=== PATIENT | male | born 1970 | race Caucasian/White ===

== ENCOUNTER 2017-12-25 06:31 | Emergency (ER) | payer SELFPAY ==
[~2017-12-25] VITALS: Ht 172.7 cm; Wt 122.5 kg
[~2017-12-25 06:31] MED LIST: IPRA0.03; ZITH250T PO
[2017-12-25 06:32] VITALS: BP 163/93; PULSE 54; RESP 17; TEMP 97.6; O2SAT 97
--- NOTE | 2017-12-25 07:12 | PD ---
HPI Chief Complaint: Oral / Dental Pain or Problem Time Seen by Provider: 07:11 Travel History International Travel<30 days: No Contact w/Intl Traveler<30days: No Traveled to known affect area: No History of Present Illness HPI 47-year-old male presents emergency department with dental pain and swelling over the left upper jaw, for the last 3 days. Patient denies sensitivity to hot and cold. He does have pain in the left upper jaw but no sore throat or difficulty swallowing. He denies fever, but has had chills. Patient states long history of bad teeth, and he is attempting to get into a dentist to have his teeth removed. Patient has been taking ibuprofen without much relief. His pain currently is 8 out of 10. He denies any other symptoms. He has no known drug allergies PFSH Past Medical History Medical History: Denies Significant Hx Arthritis: No Asthma: No Autoimmune Disease: No Blood Disorders: No Anxiety: No Depression: Yes Heart Rhythm Problems: No Cancer: No Cardiovascular Problems: Yes High Cholesterol: No Chemotherapy: No Congestive Heart Failure: No COPD: No Cerebrovascular Accident: No Diabetes: No Diminished Hearing: No Endocrine: No GERD: No Glaucoma: No Genitourinary: No Headaches: No Hepatitis: No Hiatal Hernia: No Hypertension: No Kidney Stones: No Musculoskeletal: No Neurologic: No Psychiatric: No Reproductive: No Respiratory: No Myocardial Infarction: No Radiation Therapy: No Renal Failure: No Seizures: No Sickle Cell Disease: No Sleep Apnea: No Thyroid Disease: No Ulcer: No Tetanus Vaccination: > 5 Years Past Surgical History Surgical History: No Previous Surgery Abdominal Surgery: No AICD: No Cardiac Surgery: No Ear Surgery: No Endocrine Surgery: No Eye Surgery: No Genitourinary Surgery: No Gynecologic Surgery: No Oral Surgery: No Pacemaker: No Thoracic Surgery: No Social History Alcohol Use: Yes (OCCASIONALLY) Tobacco Use: No Substance Use: Yes (MARIJUANA) Allergies-Medications (Allergen,Severity, Reaction): Coded Allergies: No Known Allergies (Verified , 05/01/16) Reported Meds & Prescriptions Reported Meds & Active Scripts Active Ibuprofen 800 Mg Tab 800 Mg PO Q8H PRN Penicillin V Potassium 500 Mg Tab 500 Mg PO Q6H 10 Days Zithromax Z-Cec[place] (Azithromycin) 250 Mg Tab 250 Mg PO DIRECTED 5 Days 500 MG (2 TABLETS) PO ON DAY 1, THEN 250 MG (1 TABLET) PO ON DAYS 2 TO 5. Ipratropium [place] 0.03 % Spr 2 [place] NA TID PRN Review of Systems Except as stated in HPI: all other systems reviewed are Neg General / Constitutional: Positive: Chills, No: Fever Eyes: No: Visual changes HENT: Positive: Dental Difficulties, No: Headaches, Vertigo, Lightheadedness, Sore Throat, Rhinitis, Rhinorrhea, Congestion, Nosebleed, Neck Stiffness, Neck Pain, Masses, Gingival Bleeding, Ear Discharge, Earache, Other Cardiovascular: No: Chest Pain or Discomfort Respiratory: No: Shortness of Breath Gastrointestinal: No: Abdominal Pain Genitourinary: No: Dysuria Musculoskeletal: No: Pain Skin: No Rash Neurologic: No: Weakness Psychiatric: No: Depression Endocrine: No: Polydipsia Hematologic/Lymphatic: No: Easy Bruising Physical Exam Narrative GENERAL: Patient appears in mild to moderate distress per SKIN: Warm and dry. Normal color. Normal turgor HEAD: Atraumatic. Normocephalic. Patient has tenderness over the left anterior upper jaw into the left maxillary region. EYES: Pupils equal and round. No scleral icterus. No injection or drainage. ENT: No nasal bleeding or discharge. Mucous membranes pink and moist. Pharynx is clear. Airways patent. Teeth are in very poor repair. Swelling is noted over the #11 and #12 tooth. NECK: Trachea midline. Supple without significant lymphadenopathy. CARDIOVASCULAR: Regular rate and rhythm. RESPIRATORY: No accessory muscle use. Clear to auscultation. Breath sounds equal bilaterally. GASTROINTESTINAL: Abdomen soft, non-tender, nondistended. Hepatic and splenic margins not palpable. MUSCULOSKELETAL: Extremities without clubbing, cyanosis, or edema. No obvious deformities. NEUROLOGICAL: Awake and alert. No obvious cranial nerve deficits. Motor grossly within normal limits. Five out of 5 muscle strength in the arms and legs. Normal speech. PSYCHIATRIC: Appropriate mood and affect; insight and judgment normal. Data Data Last Documented VS Vital Signs Date Time Temp Pulse Resp B/P (MAP) Pulse Ox O2 Delivery O2 Flow Rate FiO2 12/25/17 06:32 97.6 54 17 163/93 (116) 97 Orders Orders Penicillin V Potassium (Veetids) (12/25/17 07:15) Ketorolac Inj (Toradol Inj) (12/25/17 07:15) MDM Medical Decision Making Medical Screen Exam Complete: Yes Emergency Medical Condition: Yes Differential Diagnosis Dental pain. Dental abscess. Dental caries. Narrative Course Patient is given his first dose of Pen-Vee K 1000 mg p.o. now. Patient is given Toradol 60 mg IM. Patient continued on Pen-Vee K 500 mg 4 times daily #40. Patient given ibuprofen 800 mg 3 times daily #30. Patient can take extra strength Tylenol 4 times daily as well. Patient to follow with dental resources as soon as possible. Patient can return if worsening as needed. Diagnosis Primary Impression: Dental abscess Referrals: Dentist Patient Instructions: Dental Abscess (ED), General Instructions Additional Instructions: Patient is given his first dose of Pen-Vee K 1000 mg p.o. now. Patient is given Toradol 60 mg IM. Patient continued on Pen-Vee K 500 mg 4 times daily #40. Patient given ibuprofen 800 mg 3 times daily #30. Patient can take extra strength Tylenol 4 times daily as well. Patient to follow with dental resources as soon as possible. Patient can return if worsening as needed. Med/Other Pt SpecificInfo: Prescription(s) given Scripts Ibuprofen (Ibuprofen) 800 Mg Tab 800 MG PO Q8H Y for Pain/Inflammation, #60 TAB 0 Refills Prov: Donell Boston MD 12/25/17 Penicillin V Potassium (Penicillin V Potassium) 500 Mg Tab 500 MG PO Q6H for Infection for 10 Days, #40 TAB 0 Refills Prov: Donell Boston MD 12/25/17 Disposition: 01 DISCHARGE HOME Condition: Stable Fortino Casper Dec 25, 2017 07:12
[2017-12-25] MEDS ORDERED: PENICILLIN V POTASSIUM 500 MG TAB PO ONE (07:15)
[2017-12-25] MEDS ORDERED: KETOROLAC TROMETHAMINE 60 MG/2 ML (IM) VIAL IM ONE (07:15)
[2017-12-25] MEDS ORDERED: PENI500T PO (07:16)
[2017-12-25] MEDS ORDERED: IBUP1TAB7 PO (07:16)
== END 2017-12-25 07:36 | disposition home or self-care (01) ==
LOC: NEPD 06:31
DX: K04.7 Periapical abscess without sinus (principal); F12.90 Cannabis use, unspecified, uncomplicated
CPT/HCPCS: 96372; 99283; J1885

== ENCOUNTER 2018-05-10 17:57 | Observation (INO) ==
[2018-05-10 19:09] LABS: Baso # (Auto) 0.1 th/mm3 (0.0-0.2); Baso % (Auto) 0.8 % (0.0-2.0); Eos # (Auto) 0.3 th/mm3 (0.0-0.4); Hematocrit 43.6 % (39.0-51.0); Hemoglobin 15.1 gm/dL (13.0-17.0); Lymph # (Auto) 2.3 th/mm3 (1.0-4.8); Mean Corpuscular HGB Conc 34.7 % (32.0-36.0); Mean Corpuscular Hemoglobin 30.2 pg (27.0-34.0); Mean Corpuscular Volume 87.1 fL (80.0-100.0); Mean Platelet Volume 10.1 fL (7.0-11.0); Mono # (Auto) 0.6 th/mm3 (0.0-0.9); Mono % (Auto) 8.6 % (0.0-8.0); Neut # (Auto) 4.1 th/mm3 (1.8-7.7); Neut % (Auto) 55.6 % (16.0-70.0); Platelet Count 179 th/mm3 (150-450); Red Blood Count 5.01 mil/mm3 (4.50-5.90); Red Cell Distribution Width 13.4 % (11.6-17.2); White Blood Count 7.4 th/mm3 (4.0-11.0)
--- NOTE | 2018-05-10 19:25 | XR ---
EXAM DATE: 05/10/2018 6:57 PM EDT AGE/SEX: 47 years / Male INDICATIONS: Evaluate for pneumonia, pneumothorax, or communicable disease. Chest pain with left arm pain for one day. CLINICAL DATA: This is the patient's initial encounter. Patient reports that signs and symptoms have been present for 1 day and indicates a pain score of 6/10. MEDICAL/SURGICAL HISTORY: None. None. COMPARISON: No prior exams available for comparison. FINDINGS: PA and lateral views of the chest demonstrate the lungs to be symmetrically aerated without evidence of mass, infiltrate or effusion. The cardiomediastinal contours are unremarkable. Osseous structures are intact. CONCLUSION: No acute cardiopulmonary disease. Electronically signed by: Chino Treviño MD 05/10/2018 7:24 PM EDT
[2018-05-10 19:40] LABS: Albumin 3.8 g/dL (3.4-5.0); Anion Gap 6 meq/L (5-15); Aspartate Aminotransferase 34 U/L (15-37); Blood Urea Nitrogen 11 mg/dL (7-18); Calcium 8.9 mg/dL (8.5-10.1); Carbon Dioxide 29.4 meq/L (21.0-32.0); Chloride 104 meq/L (98-107); Glomerular Filtration Rate 48 mL/min (>89); Glucose,Random 94 mg/dL (74-106); Potassium 4.3 meq/L (3.5-5.1); Sodium 139 meq/L (136-145)
[2018-05-10 19:41] LABS: Alanine Aminotransferase 53 U/L (12-78)
[2018-05-10 19:46] LABS: Alkaline Phosphatase 82 U/L (45-117)
--- NOTE | 2018-05-10 20:53 | ED ---
HPI General Chief Complaint: Chest Pain Stated Complaint: chest tightness/left arm pain Time Seen by Provider: 05/10/18 20:47 Source: patient History of Present Illness HPI narrative: The patient is a 47 year old male who presents to the [facility] emergency department with a history of left-sided chest pain that he reports began at 9:30 AM this morning when he was arguing with someone. He reports that the pain has continued since then and waxes and wanes in severity. He reports that the pain is a tightening sensation. He reports that it radiates into the left shoulder. He reports having shortness of breath with exertion today with generalized weakness and lightheaded sensation earlier. He denies having any nausea, vomiting, or diarrhea. He denies having any diaphoresis. He denies having any prior history of DVT, PE, or coronary artery disease. He denies having any known history of hypertension, hyperlipidemia, or diabetes, however he does not follow with a primary care physician on a regular basis. The patient reports a family history of coronary artery disease on his maternal side. The patient incidentally also reports having chronic lower extremity edema that worsens with weightbearing or standing for prolonged periods of time worse in the left leg compared to the right. On review of systems otherwise, the patient denies having any known recent fevers, cough, congestion, neck pain, abdominal pain, urinary symptoms, or other neurologic symptoms. Complete Quality Measures for STEMI Alert Patients Related Data Home Medications Medication Instructions Recorded Confirmed No Known Home Medications 05/10/18 05/10/18 Allergies Allergy/AdvReac Type Severity Reaction Status Date / Time No Known Allergies Allergy Verified 05/10/18 18:39 Review of Systems ROS: all other systems reviewed are negative [facility] Medical History Medical History Patient denies medical problems (Acute) Surgical History Surgical History History of dental surgery (Acute) No history of previous surgery (Acute) Social History Social History Substance History: No History of Abuse Second Hand Smoke Exposure: Yes Smoking Status: Never smoker How Often Do You Have a Drink Containing Alcohol: Monthly or less Recent Travel in [facility] within the Last 8 Weeks: No Recent Out of Country Travel within the Last 8 Weeks: No Immunization History Tetanus Immunization: <5 Years Hx Influenza Vaccine This Season: Yes Exam Const General: cooperative, no acute distress and well developed Nutritional Appearance: well nourished Orientation: alert, awake and oriented x3 HENMT Head: normocephalic and atraumatic Nose: no nasal discharge and no epistaxis Mouth: moist mucous membranes Throat: posterior oropharynx normal and uvula midline Eyes Sclera: normal sclerae Pupils: PERRL Neck Neck: no meningeal signs, trachea midline and no JVD Resp Effort & Inspection: no use of accessory muscles Auscultation: clear to auscultation bilaterally Cardio Rate: regular rate Rhythm: regular rhythm Heart Sounds: no gallops, no murmurs and no rubs GI Inspection: non-distended Palpation: soft, no hepatosplenomegaly and nontender Auscultation: normal bowel sounds Back/Spine/Pelvis Back: no CVA tenderness Skin General: dry skin (warm) Neuro General: alert, awake and oriented x3 Cranial Nerves: other (Grossly nonfocal.) Speech: speech normal Motor: no movement abnormalities noted Extrem General: normal to inspection (No calf tenderness on palpation. Negative Homans sign. No palpable cords.), no clubbing, no cyanosis and edema (Trace pedal edema bilaterally.) Laterality: bilaterally Psych Mood: congruent mood Affect: normal affect Judgment: judgment good Course Initial Documented Vital Signs Temperature 98.5 F 05/10/18 18:13 Pulse Rate 75 05/10/18 18:13 Respiratory Rate 19 05/10/18 18:13 Blood Pressure 147/66 H 05/10/18 18:13 Pulse Oximetry 95 05/10/18 18:13 Last Documented Vital Signs Temperature 98.2 F 05/10/18 20:38 Pulse Rate 84 05/10/18 22:40 Respiratory Rate 20 05/10/18 20:38 Blood Pressure 150/84 H 05/10/18 20:38 Pulse Oximetry 98 05/10/18 20:38 Medical Decision Making MDM Narrative Medical decision making narrative: During the course of the patient's emergency department visit, the patient's history, examination, and differential diagnosis were reviewed with the patient. The patient was placed on a classroom monitor with oximetry and frequent blood pressure monitoring. The patient had IV access obtained and blood work sent for analysis. A diagnostic evaluation was started regarding the patient's chest pain. The patient was initially provided aspirin 324 mg p.o. 1, nitroglycerin 1 inch the chest wall, nitroglycerin sublingual 1. The patient's diagnostic evaluation is remarkable for chest x-ray that shows no acute abnormality, d-dimer 0.29 decreasing likelihood of pulmonary embolism or DVT in this patient. CBC is unremarkable, chemistry is remarkable for creatinine of 1.58, GFR 48 with no prior creatinine for comparison, initial set of cardiac enzymes within normal limits, BNP is 6. The patient will be admitted to the chest pain center for rule out serial cardiac enzyme protocol followed by consideration for stress testing. The patient's results were discussed with the patient, including the plan of care. I explained that further testing and/ or monitoring is indicated based on the patient's history, examination, and/ or laboratory findings. Therefore, I recommended admission for additional evaluation. The patient expressed understanding and was agreeable with this plan. The patient was admitted to the hospital in stable condition and sent to a bed under the care of the [facility]. Medical Screen Exam Complete: Yes Emergency Medical Condition: Yes Differential Diagnosis Differential Diagnosis: Acute coronary syndrome, versus pulmonary embolism, versus pneumothorax Medical Records Medical records reviewed: Yes I reviewed the patient's medical records. Lab Data Lab results reviewed: Yes I reviewed the patient's lab results. Result diagrams: 05/10/18 18:47 05/10/18 18:47 Lab Results 05/10/18 05/10/18 05/10/18 Range/Units 18:47 18:47 21:00 WBC 7.4 (4.0-11.0) th/mm3 RBC 5.01 (4.50-5.90) mil/mm3 Hgb 15.1 (13.0-17.0) gm/dL Hct 43.6 (39.0-51.0) % MCV 87.1 (80.0-100.0) fL MCH 30.2 (27.0-34.0) pg MCHC 34.7 (32.0-36.0) % RDW 13.4 (11.6-17.2) % Plt Count 179 (150-450) th/mm3 MPV 10.1 (7.0-11.0) fL Neut % (Auto) 55.6 (16.0-70.0) % Lymph % (Auto) 31.0 (9.0-44.0) % [place] % (Auto) 8.6 H (0.0-8.0) % Eos % (Auto) 4.0 (0.0-4.0) % Baso % (Auto) 0.8 (0.0-2.0) % Neut # (Auto) 4.1 (1.8-7.7) th/mm3 Lymph # (Auto) 2.3 (1.0-4.8) th/mm3 [place] # (Auto) 0.6 (0.0-0.9) th/mm3 Eos # (Auto) 0.3 (0.0-0.4) th/mm3 Baso # (Auto) 0.1 (0.0-0.2) th/mm3 WBC Differential . Differential Comment Auto diff final D-Dimer Quant (PE/DVT) 0.29 (0.00-0.50) mg/L FEU Sodium 139 (136-145) meq/L Potassium 4.3 (3.5-5.1) meq/L Chloride 104 (98-107) meq/L Carbon Dioxide 29.4 (21.0-32.0) meq/L Anion Gap 6 (5-15) meq/L BUN 11 (7-18) mg/dL Creatinine 1.58 H (0.60-1.30) mg/dL Estimated GFR 48 L (>89) mL/min Random Glucose 94 (74-106) mg/dL Calcium 8.9 (8.5-10.1) mg/dL Total Bilirubin 0.5 (0.2-1.0) mg/dL AST 34 (15-37) U/L ALT 53 (12-78) U/L Alkaline Phosphatase 82 (45-117) U/L Total Creatine Kinase (39-308) U/L CK-MB (CK-2) (0.5-3.6) ng/mL Troponin I Less than 0.02 L (0.02-0.05) ng/mL B-Natriuretic Peptide (0-100) pg/mL Total Protein 8.0 (6.4-8.2) g/dL Albumin 3.8 (3.4-5.0) g/dL 05/10/18 05/10/18 Range/Units 21:00 21:00 WBC (4.0-11.0) th/mm3 RBC (4.50-5.90) mil/mm3 Hgb (13.0-17.0) gm/dL Hct (39.0-51.0) % MCV (80.0-100.0) fL MCH (27.0-34.0) pg MCHC (32.0-36.0) % RDW (11.6-17.2) % Plt Count (150-450) th/mm3 MPV (7.0-11.0) fL Neut % (Auto) (16.0-70.0) % Lymph % (Auto) (9.0-44.0) % [place] % (Auto) (0.0-8.0) % Eos % (Auto) (0.0-4.0) % Baso % (Auto) (0.0-2.0) % Neut # (Auto) (1.8-7.7) th/mm3 Lymph # (Auto) (1.0-4.8) th/mm3 [place] # (Auto) (0.0-0.9) th/mm3 Eos # (Auto) (0.0-0.4) th/mm3 Baso # (Auto) (0.0-0.2) th/mm3 WBC Differential Differential Comment D-Dimer Quant (PE/DVT) (0.00-0.50) mg/L FEU Sodium (136-145) meq/L Potassium (3.5-5.1) meq/L Chloride (98-107) meq/L Carbon Dioxide (21.0-32.0) meq/L Anion Gap (5-15) meq/L BUN (7-18) mg/dL Creatinine (0.60-1.30) mg/dL Estimated GFR (>89) mL/min Random Glucose (74-106) mg/dL Calcium (8.5-10.1) mg/dL Total Bilirubin (0.2-1.0) mg/dL AST (15-37) U/L ALT (12-78) U/L Alkaline Phosphatase (45-117) U/L Total Creatine Kinase 179 (39-308) U/L CK-MB (CK-2) 3.0 (0.5-3.6) ng/mL Troponin I (0.02-0.05) ng/mL B-Natriuretic Peptide 6 (0-100) pg/mL Total Protein (6.4-8.2) g/dL Albumin (3.4-5.0) g/dL Imaging Data Radiologist's impression: Chest X-Ray 05/10/18 18:39 CONCLUSION: No acute cardiopulmonary disease. ECG Data Attestation: I personally reviewed and interpreted this ECG as follows: Interpretation: The patient had a EKG done on arrival that shows a sinus rhythm heart rate of 66, QRS duration is 101 ms, QTC 387 ms. Discharge Plan Discharge Disposition Patient Disposition: 30 Still Patient Discharge Details Diagnosis: Chest pain, rule out acute myocardial infarction Physicians Team ED Provider: Delmis Mustafa Rxs /Orders / Referrals /Forms Prescriptions: No Action No Known Home Medications RF: 0 Discharge Instructions Patient Printed Instructions: Chest Pain (ED) Discharge Interventions Interventions: Vital Signs Last Done: 05/10/18 18:38 Status ED Status: With Doctor
[2018-05-10 21:49] LABS: Creatine Kinase 179 U/L (39-308)
[2018-05-11 00:49] LABS: Creatine Kinase 154 U/L (39-308)
[2018-05-11 03:33] LABS: Creatine Kinase 134 U/L (39-308)
--- NOTE | 2018-05-11 10:21 | P.HPCA ---
History of Present Illness Primary Care Physician: No Primary Care Physician Chief Complaint: Chest pain History of Present Illness: This is a 47-year-old male the presents to ED via private vehicle with complaint of a chest discomfort that began yesterday after an argument. Describes as a tightness. It lasted all day long. He was short of breath. No nausea or diaphoresis. Found nothing to worsen or improve it. It is in the center/left side of his chest. Did not radiate. States he has not had any like that recently. States he had normal stress test about 15 years ago. Denies history of hypertension, hyperlipidemia, diabetes, and CAD. Patient is a non-smoker. Denies family history of CAD. - Diagnosis (1) Chest pain Review of Systems General: Patient denies fevers, chills, and recent travel. HEENT: Patient denies headache, sore throat, difficulty swallowing. Cardiovascular: Has the chest discomfort as mentioned above. Denies sensation of heart beating rapidly or irregularly. No syncope. Respiratory: He was short of breath intermittently. Denies inspirational chest discomfort. Denies coughing wheezing or hemoptysis. GI: Patient denies nausea, vomiting, diarrhea, abdominal pain, bloody stools. Musculoskeletal: Patient denies joint pain or edema. Denies calf pain or edema. Neurovascular: Patient denies numbness, tingling, weakness in extremities. Denies headache. Endocrine: Denies polyuria and polydipsia. Hematologic: Denies easy bruising. Skin: Denies rash or itching. PMFSH - History History Provided By: Patient - Medical History Medical History: Medical History (Last Reviewed 05/10/18 @ 20:55 by Delmis Mustafa MD) Patient denies medical problems - Surgical History Surgical History: Surgical History (Last Reviewed 05/10/18 @ 20:55 by Delmis Mustafa MD) No history of previous surgery History of dental surgery - Tobacco History Second Hand Smoke Exposure: No Smoking Status: Never smoker - Alcohol History How Often Do You Have a Drink Containing Alcohol: Monthly or less - Substance Use History Substance History: No History of Abuse - Travel History Recent Travel in the [place] Within the Last 8 Weeks: No Recent Travel Out of the Country Within the Last 8 Weeks: No - Immunization History Tetanus Immunization: <5 Years Hx Influenza Vaccine This Season: Yes Medications and Allergies Active Medications: Active Medications Sodium Chloride (Ns Flush) 2 ml IV.FLUSH BID JAY JAY Last Admin: 05/11/18 08:49 Dose: 2 ml Sodium Chloride (Ns Flush) 2 ml IV.FLUSH PRN PRN PRN Reason: FLUSH AFTER USING IV ACCESS Allergies Allergy/AdvReac Type Severity Reaction Status Date / Time No Known Allergies Allergy Verified 05/10/18 18:39 Home Medications Medication Instructions Recorded Confirmed Type No Known Home Medications 05/10/18 05/10/18 History Exam Vital signs: Vital Signs 05/10/18 18:13 05/10/18 18:38 05/10/18 20:38 Temperature 98.5 F 98.2 F Pulse Rate 75 67 65 Respiratory Rate 19 20 20 Blood Pressure 147/66 H 147/82 H 150/84 H Pulse Oximetry 95 98 98 05/10/18 22:40 05/11/18 00:00 05/11/18 04:00 Temperature 97.5 F L 97.5 F L Pulse Rate 84 75 60 Respiratory Rate 19 16 Blood Pressure 107/55 L 111/67 Pulse Oximetry 100 95 05/11/18 07:18 Temperature 97.5 F L Pulse Rate 65 Respiratory Rate 16 Blood Pressure 101/59 L Pulse Oximetry 95 Intake & Output 05/10/18 05/11/18 05/11/18 18:59 06:59 18:59 Weight 123.831 kg 123.831 kg Other: Weight On Admission 123.831 kg Narrative: GENERAL: This is a well-nourished, well-developed patient, in no apparent distress. Patient speaks in clear complete sentences. Patient is pleasant. HEENT: Head is atraumatic and normocephalic. Neck is supple without lymphadenopathy and trachea is midline. No JVD or carotid bruits. CARDIOVASCULAR: Regular rate and rhythm without murmurs, gallops, or rubs. RESPIRATORY: Clear to auscultation. Breath sounds equal bilaterally. No wheezes , rales, or rhonchi. Chest wall is nontender. No use of accessory muscles. GASTROINTESTINAL: Abdomen is nontender, nondistended. Abdomen soft. No obvious pulsatile mass or bruit. No CVA tenderness. Strong femoral pulses bilaterally. Normal bowel sounds in all quadrants. MUSCULOSKELETAL: Patient is moving upper and lower extremities freely. No calf tenderness or edema, no Homans sign. Strong pulses in upper and lower extremities. NEUROLOGICAL: Patient is alert and oriented. Cranial nerves 2-12 are grossly intact. No focal deficits and speech is clear. SKIN: No rash and turgor is normal. Results 05/10/18 18:47 05/10/18 18:47 Cardiac Enzymes 05/10/18 05/10/18 05/10/18 Range/Units 18:47 21:00 21:00 AST 34 (15-37) U/L CK-MB (CK-2) 3.0 (0.5-3.6) ng/mL Troponin I Less than 0.02 L (0.02-0.05) ng/mL B-Natriuretic Peptide 6 (0-100) pg/mL 05/10/18 05/11/18 Range/Units 23:50 02:50 AST (15-37) U/L CK-MB (CK-2) (0.5-3.6) ng/mL Troponin I Less than 0.02 L Less than 0.02 L (0.02-0.05) ng/mL B-Natriuretic Peptide (0-100) pg/mL Coagulation 05/10/18 Range/Units 21:00 B-Natriuretic Peptide 6 (0-100) pg/mL CBC 05/10/18 Range/Units 18:47 WBC 7.4 (4.0-11.0) th/mm3 RBC 5.01 (4.50-5.90) mil/mm3 Hgb 15.1 (13.0-17.0) gm/dL Hct 43.6 (39.0-51.0) % Plt Count 179 (150-450) th/mm3 Neut # (Auto) 4.1 (1.8-7.7) th/mm3 Lymph # (Auto) 2.3 (1.0-4.8) th/mm3 Stokes # (Auto) 0.6 (0.0-0.9) th/mm3 Eos # (Auto) 0.3 (0.0-0.4) th/mm3 Baso # (Auto) 0.1 (0.0-0.2) th/mm3 Comprehensive Metabolic Panel 05/10/18 Range/Units 18:47 Sodium 139 (136-145) meq/L Potassium 4.3 (3.5-5.1) meq/L Chloride 104 (98-107) meq/L Carbon Dioxide 29.4 (21.0-32.0) meq/L BUN 11 (7-18) mg/dL Creatinine 1.58 H (0.60-1.30) mg/dL Calcium 8.9 (8.5-10.1) mg/dL AST 34 (15-37) U/L ALT 53 (12-78) U/L Alkaline Phosphatase 82 (45-117) U/L Total Protein 8.0 (6.4-8.2) g/dL Albumin 3.8 (3.4-5.0) g/dL Intake and Output 05/10/18 05/11/18 05/11/18 22:59 06:59 14:59 Other: Weight 123.831 kg 123.831 kg Weight On Admission 123.831 kg EKG interpretations - EKG EKG shows: sinus rhythm (EKGs are sinus rhythm without significant ST segment depressions or elevations.) Caprini VTE Risk Assessment Caprini VTE Risk Assessment: No/Low Risk (score <= 1) Caprini Risk Assessment Model: Point Value = 1 Point Value = 2 Point Value = 3 Point Value = 5 Age 41-60 Minor surgery BMI > 25 kg/m2 Swollen legs Varicose veins or History of unexplained or recurrent spontaneous Oral contraceptives or hormone replacement Sepsis (< 1 month) Serious lung disease, including pneumonia (< 1 month) Abnormal pulmonary function Acute myocardial infarction Congestive heart failure (< 1 month) History of inflammatory bowel disease Medical patient at bed rest Age 61-74 Arthroscopic surgery Major open surgery (> 45 min) Laparoscopic surgery (> 45 min) Malignancy Confined to bed (> 72 hours) Immobilizing plaster cast Central venous access Age >= 75 History of VTE Family history of VTE Factor V Leiden Prothrombin [id number] Lupus anticoagulant Anticardiolipin antibodies Elevated serum homocysteine Heparin-induced thrombocytopenia Other congenital or acquired thrombophilia Stroke (< 1 month) Elective arthroplasty Hip, pelvis, or leg fracture Acute spinal cord injury (< 1 month) Prophylaxis Regimen: Total Risk Factor Score Risk Level Prophylaxis Regimen 0-1 Low Early ambulation 2 Moderate Order ONE of the following: *Sequential Compression Device (SCD) *Heparin 5000 units SQ BID 3-4 Higher Order ONE of the following medications: *Heparin 5000 units SQ TID *Enoxaparin/Lovenox 40 mg SQ daily (WT < 150 kg, CrCl > 30 mL/min) *Enoxaparin/Lovenox 30 mg SQ daily (WT < 150 kg, CrCl > 10-29 mL/min) *Enoxaparin/Lovenox 30 mg SQ BID (WT < 150 kg, CrCl > 30 mL/min) AND/OR *Sequential Compression Device (SCD) 5 or more Highest Order ONE of the following medications: *Heparin 5000 units SQ TID (Preferred with Epidurals) *Enoxaparin/Lovenox 40 mg SQ daily (WT < 150 kg, CrCl > 30 mL/min) *Enoxaparin/Lovenox 30 mg SQ daily (WT < 150 kg, CrCl > 10-29 mL/min) *Enoxaparin/Lovenox 30 mg SQ BID (WT < 150 kg, CrCl > 30 mL/min) AND *Sequential Compression Device (SCD) Assessment and Plan - Assessment (1) Chest pain Code(s): R07.9 - Chest pain, unspecified Status: Acute - Plan * Chest pain: Patient has had serial cardiac enzymes and EKGs for ruling out purposes. He was seen by Dr. Pereira of cardiology in the chest pain center. He will undergo a Dung protocol ETT and be discharged home if the stress test is nonischemic with instructions to follow-up with PCP. Return to ED for interval issues. Patient is stable at this time. He is agreeable to this plan. H&P: Quality - VTE Deep Vein Thrombosis/Pulmonary Embolism Present on Admission: No
--- NOTE | 2018-05-11 16:51 | TR ---
Date Performed: 05/11/2018 Time Performed: 09:27:33 DOCTOR: Awilda Pereira DRUG LIST: CLINICAL HISTORY: REASON FOR TEST: REASON FOR ENDING: OBSERVATION: CONCLUSION: JOE PROTOCOL. NO CP. TEST STOPPED AFTER EXCEEDING GOAL HR SECONDARY TO SOB AND LEG FATIGUE.Maximum JG=484 % Max HR Achieved=85.0% Maximum PW=664/72 Total Exercise Time=9:00 COMMENTS: No ischemia
--- NOTE | 2018-05-11 16:52 | ECG ---
Date Performed: 05/11/2018 Time Performed: 02:40:55 PTAGE: 47 years EKG: SINUS BRADYCARDIA INCOMPLETE RIGHT BUNDLE BRANCH BLOCK BORDERLINE ECG Since PREVIOUS TRACING , no significant change noted PREVIOUS TRACIN05/10/2018 23.51 DOCTOR: Awilda Pereira Interpretating Date/Time 05/11/2018 16:49:58
--- NOTE | 2018-05-11 16:52 | ECG ---
Date Performed: 05/10/2018 Time Performed: 23:51:04 PTAGE: 47 years EKG: Sinus rhythm POSSIBLE LEFT ATRIAL ENLARGEMENT INCOMPLETE RIGHT BUNDLE BRANCH BLOCK NONSPECIFIC T-WAVE ABNORMALITY BORDERLINE ECG Since PREVIOUS TRACING , no significant change noted PREVIOUS TRACIN05/10/2018 18.46 DOCTOR: Awilda Pereira Interpretating Date/Time 05/11/2018 16:50:10
--- NOTE | 2018-05-11 16:53 | ECG ---
Date Performed: 05/10/2018 Time Performed: 18:46:22 PTAGE: 47 years EKG: Sinus rhythm POSSIBLE LEFT ATRIAL ENLARGEMENT INCOMPLETE RIGHT BUNDLE BRANCH BLOCK NONSPECIFIC T-WAVE ABNORMALITY BORDERLINE ECG Since PREVIOUS TRACING , no significant change noted PREVIOUS TRACIN12/10/2015 22.13 DOCTOR: Awilda Pereira Interpretating Date/Time 05/11/2018 16:51:28
== END 2018-05-11 10:36 | disposition home or self-care (01) ==
LOC: NEDA 17:57 → NEPE 17:57 → NEPHCDU 05-11 01:21
PROVIDERS: ADMIT Emergency Medicine; ATTEND Emergency Medicine